=== PATIENT | female | born 1975 | race Two or more races ===

== ENCOUNTER 2022-01-25 16:58 | Emergency (ER) | payer BC ==
[~2022-01-25] VITALS: Ht 167.6 cm; Wt 93.0 kg
[2022-01-25] MEDS ORDERED: methylPREDNISolone SOD SUCC 125 MG/2 ML VL IM ONE (17:15)
[2022-01-25] MEDS ORDERED: KETOROLAC TROMETH 60MG/2ML VIAL IM ONE (17:15)
[2022-01-25] MEDS ORDERED: IBUP800T26 PO ×2 (17:32→18:27)
[2022-01-25] MEDS ORDERED: CYCL-837 PO ×2 (17:32→18:27)
[2022-01-25 17:45] VITALS: BP 138/72
== END 2022-01-25 18:33 | disposition home or self-care (01) ==
LOC: EDBD 16:58 → ER 16:58
DX: S46.811A Strain of other muscles, fascia and tendons at shoulder and upper arm level, right arm, initial encounter (principal); M54.2 Cervicalgia; M54.59 Other low back pain; V43.52XA Car driver injured in collision with other type car in traffic accident, initial encounter; Y93.89 Activity, other specified; Y92.410 Unspecified street and highway as the place of occurrence of the external cause; Y99.8 Other external cause status
CPT/HCPCS: 72040; 96372; 99284; J1885; J2930